=== PATIENT | female | born 1955 | race Asian ===

== ENCOUNTER 2025-05-06 04:24 | Inpatient (IN) | payer MEDICARE, OTHER ==
[~2025-05-06] VITALS: Ht 157.5 cm; Wt 60.0 kg
[2025-05-06] VITALS (14 sets, daily range): BP systolic 150–193; BP diastolic 56–97; PULSE 56–87; RESP 16–20; TEMP 97.3–98; O2SAT 93–97
[~2025-05-06 04:24] MED LIST: ASPI81TA39 PO; ATOR40TA71 PO; BUME1TAB50 PO; CHOL500013 PO; DOCU-385 PO; DULA0.75 SQ; GLIP10TA16 PO; HYDR50TA36 PO; LEVO100 PO; LISI-658 PO; LOSA-382 PO; METO25XL PO; NIFE-141 PO; PHOSLOC PO
[2025-05-06 05:11] LABS: PLATELET COUNT (AUTO) 236 K/uL (150-450); RED BLOOD CELL COUNT(AUTO) 3.41 MIL/uL (4.00-5.20); RED CELL DISTRIBUTION WIDTH 16.1 % (11.5-14.5); WHITE BLOOD COUNT (AUTO) 7.9 K/uL (4.5-11.0)
[2025-05-06 05:18] LABS: CALCIUM, TOTAL 8.9 mg/dL (8.8-10.5); CREATININE 5.24 mg/dL (0.60-1.30); GLOMERULAR FILTR. RATE CALC 8 mL/min (>60); GLUCOSE,RANDOM 156 mg/dL (70-110); SODIUM SERUM 134 mmol/L (136-145); UREA NITROGEN, BLOOD 40 mg/dL (7-18)
[2025-05-06 05:27] LABS: TROPONIN I-HIGH SENSITIVITY 24 ng/L (<51)
[2025-05-06] MEDS: BUMETANIDE 1 MG TABLET PO ONE (06:40)
[2025-05-06] MEDS: LOSARTAN POTASSIUM 50 MG TABLET PO ONE (06:41)
[2025-05-06] MEDS: LEVOTHYROXINE SODIUM 100 MCG TABLET PO ONE (06:41)
[2025-05-06] MEDS: METOPROLOL SUCCINATE 25 MG ER TABLET PO ONE (06:41)
[2025-05-06] MEDS ORDERED: DOCUSATE SODIUM 100 MG CAPSULE PO PRN (11:15)
[2025-05-06] MEDS: CALCIUM ACETATE 667 MG CAPSULE PO SCH (12:29)
[2025-05-06] MEDS: ALBUTEROL SULFATE 2.5 MG/0.5 ML NEB SOLUTION NEB PRN (12:57)
[2025-05-06] MEDS ORDERED: HEPARIN SODIUM,PORCINE 1,000 UNITS/ML VIAL IVP ONE (16:04)
[2025-05-06 18:30] LABS: GLUCOMETER DEV NAME(LOC) 5S.1D; GLUCOSE,POINT OF CARE 83 MG/DL (70-110)
[2025-05-06] MEDS: HEPARIN SODIUM,PORCINE 1,000 UNITS/ML VIAL IVCATH ONE ×2 (19:08→19:20)
[2025-05-06] MEDS: ATORVASTATIN CALCIUM 40 MG TABLET PO SCH (20:17)
[2025-05-06] MEDS: BUMETANIDE 1 MG TABLET PO SCH (20:18)
[2025-05-06 21:56] LABS: GLUCOMETER DEV NAME(LOC) 5S.1D; GLUCOSE,POINT OF CARE 136 MG/DL (70-110)
[2025-05-07] VITALS (7 sets, daily range): BP systolic 142–175; BP diastolic 44–58; PULSE 57–60; RESP 16–18; TEMP 97.5–98.8; O2SAT 92–96
[2025-05-07] MEDS: LEVOTHYROXINE SODIUM 100 MCG TABLET PO SCH (05:47)
[2025-05-07 06:01] LABS: GLUCOMETER DEV NAME(LOC) 5S.2D; GLUCOSE,POINT OF CARE 112 MG/DL (70-110)
[2025-05-07] MEDS: LOSARTAN POTASSIUM 50 MG TABLET PO SCH (08:12)
[2025-05-07] MEDS: ASPIRIN 81 MG CHEWABLE TABLET PO SCH (08:15)
[2025-05-07] MEDS: METOPROLOL SUCCINATE 25 MG ER TABLET PO SCH (08:15)
[2025-05-07] MEDS: CHOLECALCIFEROL (VIT D3) 5,000 [125 MCG] UNITS CAPSULE PO SCH (08:15)
[2025-05-07 11:40] LABS: GLUCOMETER DEV NAME(LOC) 5S.2D; GLUCOSE,POINT OF CARE 104 MG/DL (70-110)
[2025-05-07] MEDS: FOLIC ACID/VIT B COMPLEX AND C TABLET PO SCH (12:18)
[2025-05-07] MEDS ORDERED: NIFE-129 PO (15:26)
[2025-05-07] MEDS: DEXTROSE 50%-WATER 25 GM/50 ML SYRINGE IVP PRN (17:36)
[2025-05-07 18:05] LABS: GLUCOMETER DEV NAME(LOC) 5S.2D; GLUCOSE,POINT OF CARE 47 MG/DL (70-110)
[2025-05-07 18:05] LABS: GLUCOMETER DEV NAME(LOC) 5S.2D; GLUCOSE,POINT OF CARE 227 MG/DL (70-110)
[2025-05-07] MEDS: INSULIN LISPRO 100 UNITS/ML SQ PRN (20:20)
[2025-05-07 22:50] LABS: GLUCOMETER DEV NAME(LOC) 5S.1D; GLUCOSE,POINT OF CARE 291 MG/DL (70-110)
[2025-05-08 03:41] VITALS: BP 146/48; PULSE 56; RESP 18; TEMP 97.9; O2SAT 95
[2025-05-08 07:47] VITALS: BP 169/58; PULSE 62; RESP 18; TEMP 98.2; O2SAT 96
[2025-05-08 08:40] LABS: GLUCOMETER DEV NAME(LOC) 5S.1D; GLUCOSE,POINT OF CARE 73 MG/DL (70-110)
[2025-05-08 12:00] VITALS: BP 179/49; PULSE 62; RESP 16; TEMP 97.7; O2SAT 95
[2025-05-08 12:10] LABS: GLUCOMETER DEV NAME(LOC) 5S.1D; GLUCOSE,POINT OF CARE 146 MG/DL (70-110)
[2025-05-08 13:35] VITALS: BP 199/65
[2025-05-08] MEDS ORDERED: HYDR50TA37 PO (14:56)
[2025-05-08 15:37] VITALS: BP 169/51; PULSE 55; RESP 16; TEMP 97.7; O2SAT 96
== END 2025-05-08 16:05 | disposition home or self-care (01) | DRG 640 ==
LOC: EMS 04:49 → EDH 06:44 → 5S 08:10
PROVIDERS: ADMIT Hospitalist; ATTEND Hospitalist
PROC: 5A1D70Z Performance of Urinary Filtration, Intermittent, Less than 6 Hours Per Day (ICD-10-PCS; principal; 2025-05-06)
DX: E87.70 Fluid overload, unspecified (principal); N18.6 End stage renal disease; I13.2 Hypertensive heart and chronic kidney disease with heart failure and with stage 5 chronic kidney disease, or end stage renal disease; I16.0 Hypertensive urgency; E87.5 Hyperkalemia; E11.22 Type 2 diabetes mellitus with diabetic chronic kidney disease; E11.649 Type 2 diabetes mellitus with hypoglycemia without coma; I50.9 Heart failure, unspecified; D63.1 Anemia in chronic kidney disease; E03.9 Hypothyroidism, unspecified; Z83.3 Family history of diabetes mellitus; Z86.73 Personal history of transient ischemic attack (TIA), and cerebral infarction without residual deficits; Z99.2 Dependence on renal dialysis
CPT/HCPCS: 71045; 80048; 82962; 83880; 84484; 85025; 87081; 87340; 90935; 93005; 99285; J0360; J1644; 36415-L1; 36415-TC; J7613

== ENCOUNTER 2025-07-18 05:37 | Emergency (ER) | payer MEDICARE, OTHER ==
[~2025-07-18] VITALS: Ht 160 cm; Wt 58.7 kg
[~2025-07-18 05:37] MED LIST changes: -GLIP10TA16 PO; +HYDR50TA37 PO; +NIFE-129 PO; -NIFE-141 PO
[2025-07-18 05:39] VITALS: TEMP 97.7
[2025-07-18 06:19] LABS: PLATELET COUNT (AUTO) 252 K/uL (150-450); RED BLOOD CELL COUNT(AUTO) 3.54 MIL/uL (4.00-5.20); RED CELL DISTRIBUTION WIDTH 18.6 % (11.5-14.5); WHITE BLOOD COUNT (AUTO) 9.2 K/uL (4.5-11.0)
[2025-07-18 06:29] LABS: CALCIUM, TOTAL 9.0 mg/dL (8.8-10.5); CREATININE 6.49 mg/dL (0.60-1.30); GLOMERULAR FILTR. RATE CALC 6 mL/min (>60); GLUCOSE,RANDOM 142 mg/dL (70-110); SODIUM SERUM 132 mmol/L (136-145); UREA NITROGEN, BLOOD 60 mg/dL (7-18)
[2025-07-18 06:38] LABS: TROPONIN I-HIGH SENSITIVITY 49 ng/L (<51)
[2025-07-18] MEDS ORDERED: PANT-31 PO (09:21)
[2025-07-18] MEDS ORDERED: SUCR500T PO (09:21)
[2025-07-18] MEDS: ENALAPRIL MALEATE 20 MG TABLET PO ONE (11:45)
[2025-07-18] MEDS: NITROGLYCERIN 2% (1 GM=INCH) OINTMENT PACKET TP ONE (11:45)
[2025-07-18 13:18] VITALS: BP 150/78; PULSE 72; RESP 19; O2SAT 95
== END 2025-07-18 16:59 | disposition home or self-care (01) ==
LOC: EMS 06:02
DX: I13.2 Hypertensive heart and chronic kidney disease with heart failure and with stage 5 chronic kidney disease, or end stage renal disease (principal); N18.6 End stage renal disease; E11.22 Type 2 diabetes mellitus with diabetic chronic kidney disease; I50.9 Heart failure, unspecified; R25.1 Tremor, unspecified; Z79.82 Long term (current) use of aspirin; Z99.2 Dependence on renal dialysis; Z79.899 Other long term (current) drug therapy; Z86.73 Personal history of transient ischemic attack (TIA), and cerebral infarction without residual deficits
CPT/HCPCS: 71045; 80048; 84484; 85025; 93005; 99285; 36415-L1; 36415-TC